=== PATIENT | male | born 1965 | race Caucasian/White ===

== ENCOUNTER → 2019-06-20 14:00 | Outpatient (CLI) | payer OTHER, SELFPAY ==
--- NOTE | 2019-06-23 11:14 | EKG12_ITS ---
Test Reason : PRE-OP Blood Pressure : / mmHG Vent. Rate : 073 BPM Atrial Rate : 073 BPM P-R Int : 166 ms QRS Dur : 082 ms QT Int : 390 ms P-R-T Axes : 030 009 025 degrees QTc Int : 429 ms Normal sinus rhythm Normal ECG Confirmed by GIL MORRISSEY, MARTIN ([id number]), material expeditor YOLA REILLY ([id number]) on 06/26/2019 11:30:13 AM Referred By: Lobo Wild Confirmed By:MARTIN CORDERO MD
[2019-06-23 12:00] LABS: Anion Gap 5 (5-15); BUN 12 mg/dL (7-18); BUN/Creat Ratio 12.8 RATIO (10-20); Calcium,Total 9.4 mg/dL (8.5-10.1); Chloride 105 mmol/L (98-107); Creatinine, Serum 0.94 mg/dL (0.70-1.30); EST Glomerular Filtration Rate 89 mL/min (>60); Est Glom Filt Rate - Afr Amer 108 mL/min (>60); Glucose 131 mg/dL (74-106); Potassium 4.1 mmol/L (3.5-5.1); Sodium Level 139 mmol/L (136-145)
== END ==
PROVIDERS: PCP Family Medicine; Referring Provider Otolaryngology; Visit Provider Otolaryngology
DX: Z01.812 Encounter for preprocedural laboratory examination (principal); Z01.810 Encounter for preprocedural cardiovascular examination
CPT/HCPCS: 36415; 80048; 93005

== ENCOUNTER 2019-08-08 05:47 | Day surgery (SDC) | payer OTHER, SELFPAY ==
[2019-08-08 06:12] VITALS: BP 137/62; PULSE 64; RESP 16; TEMP 36.5; O2SAT 99; BMI 38.0
[2019-08-08] MEDS: Lactated Ringers 1,000 ML 100 ML IV (06:22)
--- NOTE | 2019-08-08 07:29 | DCINST_ITS ---
You will use the following diet at home:: No restrictions Discharge Activity: May not drive while taking narcotic pain medications. Call your doctor if your incision/area has: Increased Pain/ Swelling Allergies/Adverse Reactions: Allergies No Known Allergies Allergy (Verified 08/08/19 06:05) Medications to take at Discharge Aspirin [Aspir 81] 81 mg PO DAILY 06/20/19 Atorvastatin Calcium [Lipitor] 20 mg PO DAILY 06/20/19 Ubidecarenone [Coq-10] 100 mg PO DAILY 06/20/19 Primary Care Physician: Case Bartholomew [Primary Care Provider] - Test Results: Test results from this visit will be discussed in further detail at your follow- up appointment, if applicable. Please Follow Up With: Lobo Wild MD When: 1 week
--- NOTE | 2019-08-08 07:30 | PCM.OPRPT ---
Problem List (1) Deafness in right ear Status: Chronic Report of Operation Date of Procedure: 08/08/19 Pre-Operative Diagnosis: right single sided deafness Post-Operative Diagnosis: right single sided deafness Surgery/Procedure Performed:: bone anchored hearing aid, right Type of Anesthesia:: General Description of Procedure: on the day of the procedure, after appropriate informed consent was obtained, the patient was brought to the operating room and placed in supine position on the operating table. he was placed under general endotracheal anesthesia by the anesthesiologist. the endotracheal tube was secured, the eyes were taped. the table was rotated 90 degrees toward the surgeon. the skin thickness in the postauricular area 55mm posterior to the canal and even with the superior pinna was measured to be 9mm. it was deemed necessary to go with a 14mm abutment to prevent skin overgrowth. the area was injected with lidocaine/epinephrine. the ear was prepped and draped in sterile fashion. a 3cm incision was made anterior to the marked point with a 15 blade. this was dissected down to the periosteum with the bovie. the area of bone under the marked point was exposed and a cruciate incision was made with a 15 blade. the periosteum was swept away with a raspatorium. using the appropriate drill settings throughout with irrigation throughout, the 3+4mm conical drill bit with spacer was used. a probe was placed into the hole and no dura was palpated. the spacer was removed and a 4mm hole was drilled. the 4mm drill bit with countersink was then attached and the hole drilled again. the area was irrigated and a 4mm implant with a 14mm abutment was placed until the drill self-stopped. it was firmly in place. the skin was closed with 4-0 vicryl and 4-0 nylon. a 5mm punch biopsy was used to resurface the implant posterior to the incision. again, this was in good position and appropriately extending from the soft tissue. an allevyn and healing cap were placed. the patient was awoken from anesthesia and transferred to the PACU in stable condition.
[2019-08-08 08:43] VITALS: BP 134/60; BP 137/62; PULSE 85; RESP 16; TEMP 36.5; O2SAT 95
[2019-08-08 09:00] VITALS: BP 108/60; BP 137/62; PULSE 77; RESP 18; O2SAT 94
[2019-08-08 09:11] VITALS: BP 122/75; BP 137/62; PULSE 74; RESP 18; TEMP 36.8; O2SAT 96
[2019-08-08 09:36] VITALS: BP 137/62
== END 2019-08-08 09:43 | disposition home or self-care (01) ==
LOC: SDC 05:48 → AC 05:49
PROVIDERS: PCP Family Medicine; Referring Provider Otolaryngology; Visit Provider Otolaryngology
PROC: (CPT 69710; principal; 2019-08-08 07:20)
DX: H91.21 Sudden idiopathic hearing loss, right ear (principal); H93.11 Tinnitus, right ear
CPT/HCPCS: 00120; 69710; J7120; J2405

== ENCOUNTER → 2019-08-23 15:54 | Outpatient (CLI) | payer OTHER, SELFPAY ==
[2019-08-08 06:12] VITALS: BMI 38.0
== END ==
PROVIDERS: PCP Family Medicine; Referring Provider Otolaryngology; Visit Provider Otolaryngology
DX: H92.10 Otorrhea, unspecified ear (principal)
CPT/HCPCS: 87070; 87075; 87186; 87205

== ENCOUNTER → 2022-12-18 | Outpatient (CLI) | payer OTHER, SELFPAY | END | disposition home or self-care (01) | PROVIDERS: PCP Family Medicine; Referring Provider Otolaryngology; Visit Provider Otolaryngology | DX: L03.811 Cellulitis of head [any part, except face] (principal) | CPT/HCPCS: 87070; 87077; 87186; 87205 ==

== ENCOUNTER → 2022-12-24 | Outpatient (CLI) | payer OTHER, SELFPAY | END | disposition home or self-care (01) | PROVIDERS: PCP Family Medicine; Visit Provider Otolaryngology | DX: L03.211 Cellulitis of face (principal) | CPT/HCPCS: 87070; 87077; 87186; 87205 ==

== ENCOUNTER → 2023-01-27 | Outpatient (CLI) | payer OTHER, SELFPAY | END | disposition home or self-care (01) | LOC: LABSPEC 14:33 | PROVIDERS: PCP Family Medicine; Referring Provider Otolaryngology; Visit Provider Otolaryngology | DX: L03.211 Cellulitis of face (principal); L03.811 Cellulitis of head [any part, except face] | CPT/HCPCS: 87070; 87077; 87186; 87205 ==

== ENCOUNTER → 2023-02-25 | Outpatient (CLI) | payer OTHER, SELFPAY | END | disposition home or self-care (01) | LOC: LABSPEC 15:00 | PROVIDERS: PCP Family Medicine; Referring Provider Otolaryngology; Visit Provider Otolaryngology | DX: L03.211 Cellulitis of face (principal) | CPT/HCPCS: 87070; 87205 ==

== ENCOUNTER 2023-07-29 08:00 | Day surgery (SDC) | payer OTHER, SELFPAY ==
--- OUTSIDE RECORDS SUMMARY | 2023-07-29 08:03 | XMS RPT_ITS | CCD ---
Author Name Unknown Address [address] [place] [address] Organization [facility] Care Team Providers Care Telepathist Name Role Phone RISHABH CANALES Consulting Unavailable SALENA TAYLOR Admitting UnavailSALENA Rivera Primary Care UnavailSALENA Rivera Attending Unavailabl e PROVIDER, UNKNOWN Consulting Unavailable PROVIDER, UNKNOWN Consulting Unavailable PROVIDER, UNKNOWN Consulting Unavailable Results Test Name Value Interpretation Reference Range Facil ity Encounters Encounter Date Encounter Type Care Provider Facility Start: 12-28-2022 End: 12-28-2022 ambulatory RISHABH CANALES [facility] Payers Date Payer Category Payer Unknown [id number] Unknown [id number] Summary Purpose Family History No Family History Records FoundNo Family History Records FoundNo Family History Records Found Advance Directives No Advanced Directives Records FoundNo Advanced Directives Records FoundNo Advanced Directives Records Found Additional Source Comments (unrecognized sect ion and content) No Status Records FoundNo Status Records FoundNo Status Records Found INFORMATION SOURCE (unrecogn ized section and content) DATE CREATED AUTHOR AUTHOR'S ORGANIZ ATION 12/28/2022 [facility] DATE CREATED AUTHOR AUTHOR'S ORGANIZ ATION 03/07/2023 [facility] FOR RECORDS PERTAINING TO PATIENTS WHO ARE OR HAVE BEEN ENROLLED IN A CHEMICAL DEPENDENCY/SUBSTANCEABUSE PROGRAM, SOME INFORMATION MAY BE OMITTED. This clinical summary was aggregated from multiple sources. Caution should be exercised in using it in the provision of clinical care. This summary normalizes information from multiple sources, and as a consequence, information in this document may materially change the coding, format and clinical context of patient data. In addition, data may be omitted in some cases. CLINICAL DECISIONS SHOULD BE BASED ON THE PRIMARY CLINICAL RECORDS. [facility] provides no warranty or guarantee of the accuracy or completeness of information in this document.
[2023-07-29] MEDS: Lactated Ringers 1,000 ML 15 ML IV (08:49)
[2023-07-29 08:50] VITALS: BP 125/78; PULSE 74; RESP 18; TEMP 36.8; O2SAT 98; BMI 36.6
--- NOTE | 2023-07-29 09:14 | HP.PCM_ITS ---
[facility] - General General Date of Admission: 07/29/23 Date of Service: 07/29/23 Chief Complaint: Screening colonoscopy HPI Narrative ASHLEIGH SANTOS, is a 58 M who presents today for screening colonoscopy. He is not having abdominal pain. He is not having chest pain or shortness of breath. He does not take any medicines on a daily basis. Overall he is in good health except for deafness in the right ear. [facility] Medical History (Updated 07/27/23 @ 09:28 by Rosie Newman) CPAP (continuous positive airway pressure) dependence Erectile dysfunction Hypertriglyceridemia Lung nodule DION (obstructive sleep apnea) Smoker Type 2 diabetes mellitus with other specified complication Wears glasses Wears hearing aid Home Medications sildenafil 25 mg tablet 20 mg PO DAILY PRN sexual activity 07/08/23 [History Last Taken Unknown] Allergy/AdvReac Type Severity Reaction Status Date / Time No Known Allergies Allergy Verified 07/08/23 10:38 Surgical History (Updated 07/27/23 @ 09:28 by Rosie Newman) History of appendectomy History of cholecystectomy History of surgery of head Social History (Updated 07/08/23 @ 10:38 by Etelvina Taylor) household members: spouse current occupational status: employed Smoking Status: Current some day smoker tobacco type: cigars ROS Review of Systems ROS Unobtainable: other Constitutional Constitutional: Denies fatigue, fever(s), poor appetite, weight gain or weight loss ENT HEENT: Denies mouth lesions Cardiovascular Cardiovascular: Denies abdominal bloating, abdominal edema or abdominal pain Respiratory/Chest Respiratory/Chest: Denies change in mental status, change in phlegm color, chest congestion or chest tightness Gastrointestinal Gastrointestinal: Denies belching, bloating, change in bowel habits, change in stool character, chewing difficulty, coffee ground emesis, constipation, cramping, diarrhea, dyspepsia, dysphagia, early satiety, excessive flatus, fecal incontinence, heartburn, hematemesis, hematochezia, hemorrhoids, loose stools, melena, nausea, odynophagia, rectal bleeding, tenesmus, vomiting or weight changes Genitourinary Genitourinary: Denies abdominal discomfort, burning urination or itching Musculoskeletal Musculoskeletal: Reports as per HPI; Denies muscle weakness or myalgias Integumentary Integumentary: Denies jaundice Neurologic Neurologic: Denies lack of coordination or weakness Psychiatric Psychiatric: Denies confusion, depression, memory loss, mood swings, paranoia or suicidal ideation Endocrine Endocrinology: Denies systems reviewed and no addt'l complaints, except as documented Hematologic/Lymphatic Hematologic/Lymphatic: Denies anemia, easy bleeding, easy bruising or lymphadenopathy Allergic/Immunologic Allergic/Immunologic: Denies systems reviewed and no addt'l complaints, except as documented Vital Signs Vital Signs Vital Signs: 07/29/23 08:50 07/29/23 08:50 Temperature 98.2 F Temperature Source Temporal Pulse Rate 74 Respiratory Rate 18 Respiratory Pattern Normal Blood Pressure 125/78 H Blood Pressure Mean 93 Blood Pressure Source Monitor Blood Pressure Position Semi-Fowlers Blood Pressure Location Right Arm Pulse Ox 98 Oxygen Delivery Method Room Air Weight Weight: 285 lb 6.4 oz Body Mass Index (BMI) 36.6 Physical Exam Const alert General Appearance: cooperative Orientation / Consciousness: oriented to person HEENT hearing grossly normal bilaterally Head and Scalp: normal to inspection Face and Sinus: face symmetric Nose: external nose normal Mouth: oral and palatal mucosa normal Eyes conjunctivae normal General Eye: normal appearance of both eyes Neck full ROM General: normal visual inspection Lymph Lymphatic: no lymphadenopathy noted Chest inspection of chest normal and palpation of chest normal Chest: symmetrical chest wall rise Resp normal respiratory effort Effort and Inspection: able to speak in complete sentences Cardio regular rate GI non-distended Percussion: normal to percussion Rectal Exam: deferred Neuro Speech: speech normal Gait (Neuro): normal gait Assessment & Plan Assessment/Plan (1) Encounter for screening for malignant neoplasm of colon: PLAN: He was explained alternatives, risk, benefits including not withstanding bleeding, infection, sepsis, perforation, need for emergent urgent . He will have an ASA of 3.
[2023-07-29 09:15] LABS: Bedside Glucose 220 mg/dL (74-106)
[2023-07-29 09:47] VITALS: BP 110/74; BP 125/78; PULSE 68; RESP 16; TEMP 36.4; O2SAT 98
--- NOTE | 2023-07-29 09:47 | OP.COLON_ITS ---
Patient Name: Erik Aguilar Procedure Date: 07/29/2023 9:14 AM Date of : 1965 Age: 58 Procedure: Colonoscopy Indications: Screening for colorectal malignant neoplasm Providers: Frank Heller DO Medicines: Monitored Anesthesia Care Patient Profile: This is a 58 year old male. Refer to note in patient chart for documentation of history and physical. Last Colonoscopy: none. The patient's first colonoscopy is today. Complications: No immediate complications. Procedure: Pre-Anesthesia Assessment: - Prior to the procedure, a History and Physical was performed, and patient medications and allergies were reviewed. The patient is competent. The risks and benefits of the procedure and the sedation options and risks were discussed with the patient. All questions were answered and informed consent was obtained. Patient identification and proposed procedure were verified by the physician in the pre-procedure area. Mental Status Examination: alert and oriented. Airway Examination: normal oropharyngeal airway and neck mobility. Respiratory Examination: clear to auscultation. CV Examination: normal. Prophylactic Antibiotics: The patient does not require prophylactic antibiotics. Prior Anticoagulants: The patient has taken no anticoagulant or antiplatelet agents. ASA Grade Assessment: II - A patient with mild systemic disease. After reviewing the risks and benefits, the patient was deemed in satisfactory condition to undergo the procedure. The anesthesia plan was to use monitored anesthesia care (MAC). Immediately prior to administration of medications, the patient was re-assessed for adequacy to receive sedatives. The heart rate, respiratory rate, oxygen saturations, blood pressure, adequacy of pulmonary ventilation, and response to care were monitored throughout the procedure. The physical status of the patient was re-assessed after the procedure. After I obtained informed consent, the scope was passed under direct vision. Throughout the procedure, the patient's blood pressure, pulse, and oxygen saturations were monitored continuously. The colonoscope was introduced through the anus and advanced to the cecum, identified by appendiceal orifice and ileocecal valve. The colonoscopy was performed without difficulty. The patient tolerated the procedure well. The quality of the bowel preparation was good. The ileocecal valve, appendiceal orifice, and rectum were photographed. Scope In: 9:28:11 AM Scope Withdrawal Time 0 hours 12 minutes 15 seconds Scope Out: 9:42:58 AM Total Procedure Duration Time 0 hours 14 minutes 47 seconds Findings: The perianal and digital rectal examinations were normal. The colon (entire examined portion) appeared normal. A few small-mouthed diverticula were found in the recto-sigmoid colon. The exam was otherwise without abnormality on direct and retroflexion views. Impression: - The entire examined colon is normal. - Diverticulosis in the recto-sigmoid colon. - The examination was otherwise normal on direct and retroflexion views. - No specimens collected. Recommendation: - Discharge patient to home. - Resume previous diet. - Continue present medications. - Repeat colonoscopy in 10 years for screening purposes. Procedure Code(s): --- Professional --- G0121, Colorectal cancer screening; colonoscopy on individual not meeting criteria for high risk CPT copyright 2021 [employer]. All rights reserved. The codes documented in this report are preliminary and upon security systems manager review may be revised to meet current compliance requirements. Frank Heller DO 07/29/2023 9:47:18 AM This report has been signed electronically. Number of Addenda: 0 Note Initiated On: 07/29/2023 9:14 AM
--- NOTE | 2023-07-29 09:47 | OP.CCLET_ITS ---
07/29/2023 Case Bartholomew Re : Colonoscopy procedure for Erik Yaor Puma This procedure was performed on July 29, 2023. My impressions and recommendations are as follows: Impressions : - The entire examined colon is normal. - Diverticulosis in the recto-sigmoid colon. - The examination was otherwise normal on direct and retroflexion views. - No specimens collected. Recommendations : - Discharge patient to home. - Resume previous diet. - Continue present medications. - Repeat colonoscopy in 10 years for screening purposes. My findings are described in the full procedure note, which is enclosed. If I can be of further assistance, please feel free to contact me at . Sincerely, Frank Heller, 07/29/2023 9:47:18 AM This report has been signed electronically.
[2023-07-29 09:50] VITALS: BP 100/75; BP 125/78; PULSE 68; RESP 16; O2SAT 95
[2023-07-29 09:55] VITALS: BP 105/68; BP 125/78; PULSE 70; RESP 16; O2SAT 98
[2023-07-29 10:00] VITALS: BP 112/74; BP 125/78; PULSE 69; RESP 16; TEMP 36.3; O2SAT 96
[2023-07-29 10:33] VITALS: BP 125/78
== END 2023-07-29 10:41 | disposition home or self-care (01) ==
LOC: EN 08:01 → AC 08:03
PROVIDERS: PCP Family Medicine; Referring Provider Internal Medicine Gastroenterology; Visit Provider Internal Medicine Gastroenterology
PROC: 0DJD8ZZ Inspection of Lower Intestinal Tract, Via Natural or Artificial Opening Endoscopic (ICD-10-PCS; CPT 45378; principal; 2023-07-29 09:10)
DX: Z12.11 Encounter for screening for malignant neoplasm of colon (principal); E11.69 Type 2 diabetes mellitus with other specified complication; H91.91 Unspecified hearing loss, right ear; K57.90 Diverticulosis of intestine, part unspecified, without perforation or abscess without bleeding; G47.33 Obstructive sleep apnea (adult) (pediatric); Z99.89 Dependence on other enabling machines and devices; Z90.49 Acquired absence of other specified parts of digestive tract; F17.290 Nicotine dependence, other tobacco product, uncomplicated; N52.9 Male erectile dysfunction, unspecified
CPT/HCPCS: G0121; 82962; J7120; J2405